=== PATIENT | female | born 1980 | race Caucasian/White ===

== ENCOUNTER 2018-07-22 06:42 | Day surgery (SDC) | payer OTHER ==
[~2018-07-22] VITALS: Ht 154.9 cm; Wt 56.2 kg
[~2018-07-22 06:42] MED LIST: ASCO500T2 PO; BUPIVACAINE-EPI 0.25%-1:200000 MPF 30 ML VIAL. ONE; CHOL100013 PO; IBUP-1027 PO; MULT1TAB52 PO
[2018-07-22] MEDS ORDERED: MORPHINE SULFATE 2 MG/ML VIAL. IV PRN ×2 (07:00)
[2018-07-22] MEDS ORDERED: LIDOCAINE 1% PF 2 ML VIAL. ID PRN ×2 (07:00)
[2018-07-22] MEDS ORDERED: HYDROmorphone 2 MG/ML VIAL IV PRN ×2 (07:00)
[2018-07-22] MEDS ORDERED: PROCHLORPERAZINE 10 MG/2 ML VIAL. IV PRN ×2 (07:00)
[2018-07-22] MEDS ORDERED: fentaNYL PF VIAL 100 MCG/2 ML VIAL IV PRN ×4 (07:00)
[2018-07-22] MEDS ORDERED: ONDANSETRON PF 4 MG/2 ML VIAL. IV PRN ×2 (07:00)
[2018-07-22] MEDS ORDERED: IV RINGERS,LACTATED 1000ML 1,000 ML IV SCH ×2 (07:00)
[2018-07-22] MEDS ORDERED: SCOPOLAMINE 1.5MG PATCH. TD ONE (07:30)
[2018-07-22] MEDS ORDERED: fentaNYL PF VIAL 250 MCG/5 ML VIAL ONE (07:42)
[2018-07-22] MEDS ORDERED: MIDAZOLAM HCL/PF 2 MG/2 ML VIAL. ONE (07:42)
[2018-07-22] MEDS ORDERED: ROCURONIUM 50 MG/5 ML VIAL. ONE (07:42)
[2018-07-22] MEDS ORDERED: DEXAMETHASONE SOD PHOS 20 MG/5 ML VIAL. ONE (08:16)
[2018-07-22] MEDS ORDERED: LIDOCAINE 2% PF 5 ML VIAL. ONE (08:16)
[2018-07-22] MEDS ORDERED: ONDANSETRON PF 4 MG/2 ML VIAL. ONE (08:16)
[2018-07-22] MEDS ORDERED: PROPOFOL 20 ML IV ONE (08:16)
[2018-07-22 08:17] LABS: U PREG PATIENT NEGATIVE (NEG)
[2018-07-22] MEDS ORDERED: PHENYLEPHRINE in 0.9% NACL PF 1 MG/10 ML SYRINGE. IV ONE (08:28)
[2018-07-22] MEDS ORDERED: NEOSTIGMINE METHYLSULFATE 5 MG/5 ML SYRINGE. ONE (08:50)
[2018-07-22] MEDS ORDERED: GLYCOPYRROLATE 1 MG/5 ML VIAL. ONE (08:50)
--- NOTE | 2018-07-22 08:57 | PDOC4 ---
Operative Note Operative Note Date: 07/22/2018 Preoperative diagnosis: Ventral hernia Postoperative diagnosis: Same Procedure: Robotic-assisted laparoscopic ventral hernia repair with mesh Surgeon: Unruly Dictation: Patient is 38-year-old female complained of a painful bulge above her umbilicus in the epigastric area for several months states his been getting larger and more painful. Procedure of robotic-assisted laparoscopic ventral hernia repair with mesh was explained to the patient detail risk benefits were also discussed including bleeding infection injury to intra-abdominal contents possibly necessitating further open operations alternatives to this procedure also discussed with the patient who seemed to understand gave both verbal and written consent to have the procedure performed. Patient was taken to the operating room placed in supine position, dural anesthesia was initiated once patient was asleep and intubated her abdomen was prepped and draped usual sterile fashion using ChloraPrep and area in the left upper quadrant was injected with quarter percent Marcaine with epinephrine incision with a left blade scalpel and a 5mm Visiport was placed under direct visualization and abdomen and a pneumoperitoneum was created the abdomen was inspected and showed a small ventral hernia in the epigastric area with incarcerated omentum. A da Umm 8 mm port was placed in the left lower abdomen one in the mid abdomen and the 5 mm Visiport was removed and a 8mm da Umm port was placed in the left upper abdomen dementia robot was brought in to Dr. all port sites surgeon went to the robotic console using grasper and endo-shear scissors the omentum was reduced from the hernia defect and the hernia defect was then closed with a 20V LOC nonabsorbable suture ventral light ST mesh was then placed over the hernia defect this was sewn in place with a running V lock suture. Once this was complete the pneumoperitoneum was reduced all ports removed dementia robot was undocked from all ports all port sites were closed for septic or Monocryl Mastisol Steri-Strips and island dressings were applied. The patient was awakened and extubated operating room taken to recovery in stable condition all sponge instrument needle counts listed as correct a blood loss 5 mL DAVID KHAN MD Jul 22, 2018 08:56
--- NOTE | 2018-07-22 08:59 | DISCH ---
DISCHARGE INSTRUCTIONS Condition on Discharge Condition on Discharge: Stable Activity After Discharge Activity Instructions for Disc: Avoid exertion Other activity instructions: no lifting more than 20 pounds for 2 weeks Diet after Discharge Diet after Discharge: Regular Wound Incision Care Other wound/incision instructi: May shower in 24 hours Contacting the [facility] after DC Call your doctor for: If your condition worsens Follow-Up Follow up with: Unruly in 2 weeks DAVID KHAN MD Jul 22, 2018 08:59
[2018-07-22] MEDS ORDERED: fentaNYL PF VIAL 100 MCG/2 ML VIAL ONE ×2 (09:02→11:01)
[2018-07-22] MEDS ORDERED: PROCHLORPERAZINE 10 MG/2 ML VIAL. ONE ×2 (09:02→10:46)
[2018-07-22] MEDS ORDERED: KETOROLAC 30 MG/ML VIAL. ONE (09:08)
[2018-07-22] MEDS ORDERED: HYDR-3164 PO (09:26)
[2018-07-22] MEDS ORDERED: HYDROcodone/APAP 5/325MG 1 TAB TABLET PO ONE ×2 (09:30)
[2018-07-22 11:30] VITALS: BP 98/61
== END 2018-07-22 11:43 | disposition home or self-care (01) ==
LOC: SURG 06:42
PROVIDERS: ATTEND Surgery
DX: K43.9 Ventral hernia without obstruction or gangrene (principal); K22.8 Other specified diseases of esophagus; Z79.899 Other long term (current) drug therapy; Z98.890 Other specified postprocedural states
CPT/HCPCS: 49652; 81025; A7015; C1781; J0696; J0780; J1100; J1885; J2001; J2250; J2370; J2405; J2704; J2710; J3010; J3490; S2900

== ENCOUNTER → 2020-07-04 | Outpatient (CLI) | payer OTHER ==
[~2020-07-04] MED LIST changes: +0.9 % SODIUM CHLORIDE 10 ML DISP.SYRIN. ID ONE; -ASCO500T2 PO; +ASCO500T4 PO; -BUPIVACAINE-EPI 0.25%-1:200000 MPF 30 ML VIAL. ONE; +GADOTERATE 5 MMOL/10ML VIAL. INT ART ONE; +HYDR-3164 PO; +IOHEXOL 300 MG/ML 50 ML VIAL. INT ART ONE; +LIDOCAINE 1% Multi-Dose 20 ML VIAL. ID ONE; +MULT-445 PO; -MULT1TAB52 PO
--- NOTE | 2020-07-04 11:33 | KCIC ---
FLUOROSCOPICALLY GUIDED RIGHT HIP ARTHROGRAM 1. INDICATION: The patient is a 40 years old Female who presented with chronic bilateral hip pain. 2. CONSENT: The risks, benefits, treatment options, potential complications and personnel to be invo lved were discussed (including the risks of radiation exposure, instruments to be used, contrast and anesthesia administration) with the patient. All questions were answered and consent was obtained. Th e patient indicated willingness to proceed. 3. GENERAL: a) Medication Reconciliation: The patient's medications and allergies were reviewed in the [facility] medical record and reconciled to the proposed procedure/treatment. b) Positioning: The patient was placed Supine on the fluoroscopy table. c) The right hip was then sterilely prepped and draped. d) Time Out: A time out was performed immediately prior to procedure start with the nursing, anesthes ia and interventional team, correctly identifying the patient name, date of , procedure, anatomy (including marking of site and side), patient position, procedure consent form, relevant diagnostic and radiology test results, antibiotic administration, safety precautions, and procedure-specific equ ipment needs. Procedure Start Time / Timeout Time: 08:45 e) Anesthesia Type: Local anesthesia: 2 mL 1% Lidocaine 4. PROCEDURE: a) Procedure Details: A 20g spinal needle was inserted into the right hip joint. 1 mL Omnipaque 300 was injected to confirm intra-articular placement of needle. Contrast was observed to flow into the i ntra-articular space of the joint without significant resistance. 10 mL of injectate was administered into the joint. The needle was removed. Images were stored to the permanent digital archive document ing needle position. b) Injectate Contents: 0.2 mL Clariscan 20 mL Normal Saline c) Estimated Blood Loss: 0 mL RADIATION DOSE: Fluoroscopic Radiation Summary: Fluoro time: 0:08 min:sec POST PROCEDURE: a) Hemostasis: Hemostasis was achieved using light manual compression. b) Procedure End Time: 08:52 c) Conclusion: The patient was discharged from the radiology department in stable condition. COMPLICATIONS: a) Significant Patient Complication: None If other, explain: b) Complications during the procedure: None If other, explain: 5. RESULTS: Contrast was injected into the joint. 6. IMPRESSION: SUCCESSFUL FLUOROSCOPICALLY GUIDED ARTHROGRAM OF THE RIGHT HIP DESCRIBED ABOVE. FLUOROSCOPICALLY GUIDED LEFT HIP ARTHROGRAM 1. INDICATION: The patient is a 40 years old Female who presented with chronic bilateral hip pain. 2. CONSENT: The risks, benefits, treatment options, potential complications and personnel to be invo lved were discussed (including the risks of radiation exposure, instruments to be used, contrast and anesthesia administration) with the patient. All questions were answered and consent was obtained. Th e patient indicated willingness to proceed. 3. GENERAL: a) Medication Reconciliation: The patient's medications and allergies were reviewed in the [facility] medical record and reconciled to the proposed procedure/treatment. b) Positioning: The patient was placed Supine on the fluoroscopy table. c) The left hip was then sterilely prepped and draped. d) Time Out: A time out was performed immediately prior to procedure start with the nursing, anesthes ia and interventional team, correctly identifying the patient name, date of , procedure, anatomy (including marking of site and side), patient position, procedure consent form, relevant diagnostic and radiology test results, antibiotic administration, safety precautions, and procedure-specific equ ipment needs. Procedure Start Time / Timeout Time: timeout reaffirmed at 10:20 e) Anesthesia Type: Local anesthesia: 2 mL 1% Lidocaine 4. PROCEDURE: a) Procedure Details: A 20g spinal needle was inserted into the left hip joint. 1 mL Omnipaque 300 w as injected to confirm intra-articular placement of needle. Contrast was observed to flow into the in tra-articular space of the joint without significant resistance. 10 mL of injectate was administered into the joint. The needle was removed. Images were stored to the permanent digital archive documenti ng needle position. b) Injectate Contents: 0.2 mL Clariscan 20 mL Normal Saline c) Estimated Blood Loss: 0 mL RADIATION DOSE: Fluoroscopic Radiation Summary: Fluoro time: 0:07 min:sec POST PROCEDURE: a) Hemostasis: Hemostasis was achieved using light manual compression. b) Procedure End Time: 10:29 c) Conclusion: The patient was discharged from the radiology department in stable condition. COMPLICATIONS: a) Significant Patient Complication: None If other, explain: b) Complications during the procedure: None If other, explain: 5. RESULTS: Contrast was injected into the joint. 6. IMPRESSION: SUCCESSFUL FLUOROSCOPICALLY GUIDED ARTHROGRAM OF THE LEFT HIP DESCRIBED ABOVE. Electronically signed by: David Freed DO (07/04/2020 11:31 AM) [id number]
--- NOTE | 2020-07-04 13:09 | KCIC ---
EXAMINATION: MR ARTHROGRAM CLINICAL HISTORY: Chronic bilateral hip pain with concern for pincer type of impingement TECHNIQUE: Routine hip MRI arthrogram protocol. Procedural portion of the arthrogram reported anurag shaffer. COMPARISON: MR arthrogram right hip same day FINDINGS: Left Hip: No labral tear. No full-thickness chondral defect. No acute fracture. No avascular necrosis . Tendons: Within normal limits including the iliopsoas, hamstring, gluteal and rectus femoris tendons. Muscles: Within normal limits. Bones/Marrow: No acute fracture or suspicious marrow replacing lesion. IMPRESSION: No left acetabular labrum tear. Electronically signed by: David Freed DO (07/04/2020 1:06 PM) [id number]
--- NOTE | 2020-07-04 13:09 | KCIC ---
EXAMINATION: MR ARTHROGRAM RIGHT HIP CLINICAL HISTORY: Chronic bilateral hip pain with concern for pincer type of impingement TECHNIQUE: Routine hip MRI arthrogram protocol. Procedural portion of the arthrogram reported anurag shaffer. COMPARISON: MR arthrogram left hip same day FINDINGS: Right Hip: No labral tear. No full-thickness chondral defect. No acute fracture. No avascular necrosi s. Tendons: Within normal limits including the iliopsoas, hamstring, gluteal and rectus femoris tendons. Muscles: Within normal limits. Bones/Marrow: No acute fracture or suspicious marrow replacing lesion. Other: Mild thickening of the trochanteric bursa. IMPRESSION: No right acetabular labrum tear. Electronically signed by: David Freed DO (07/04/2020 1:06 PM) [id number]
== END | disposition home or self-care (01) ==
LOC: KCIC 08:11
PROVIDERS: ATTEND Family Medicine
DX: M25.552 Pain in left hip (principal); M25.551 Pain in right hip; Z79.899 Other long term (current) drug therapy; Z98.890 Other specified postprocedural states; Z72.89 Other problems related to lifestyle
CPT/HCPCS: 27093; 73722; 77002; A9575; J3490; Q9967; 73525